=== PATIENT | male | born 1985 | race Two or more races ===

== ENCOUNTER 2025-02-11 11:23 | Emergency (ER) | payer OTHER ==
[~2025-02-11] VITALS: Ht 167.6 cm; Wt 70.0 kg
--- NOTE | 2025-02-11 11:53 | ED.PDOC ---
HPI Comments A 39 YEAR OLD MALE PRESENTS TO THE ED WITH COMPLAINT OF LACERATION. PATIENT REPORTS ON DRILLING AT WORK WHEN THE DRILL CAUGHT ONTO HIS VEST PULLING HIM AROUND, LEAVING HIM WITH ECCHYMOSIS ON THE LEFT INNER BICEPS AND A LACERATION ON THE LEFT FOREARM. PT IS ABLE TO MOVE HIS LEFT UPPER EXTREMITY WITH NORMAL ROM. PATIENT DENIES FEVER, CHILLS, SHORTNESS OF BREATH, CHEST PAIN, ABDOMINAL PAIN, NAUSEA, VOMITING, HEADACHE, OR OTHER COMPLAINTS. NO OTHER SYMPTOMS OR MODIFYING FACTORS AT THIS TIME. PATIENT IS ALERT, ORIENTED X 4, AND HAS STEADY GAIT. Chief Complaint: Laceration Time Seen by MD: 11:30 Primary Care Provider: NONE Reviewed Notes: Nurses Notes, Medications, Allergies Allergies: Coded Allergies: NO KNOWN ALLERGIES (Unverified , 08/10/12) Home Meds Active Scripts Naproxen (Naproxen) 500 Mg Tab, 500 MG PO BID, #30 TAB Prov:JOSE MANUEL MOORE 02/11/25 Cephalexin Monohydrate (Cephalexin) 500 Mg Cap, 1 CAP PO QID, #40 CAP Prov:JOSE MANUEL MOORE 02/11/25 Information Source: Patient Mode of Arrival: Ambulatory Severity: Moderate Severity of Laceration: Controlled Bleeding Complexity: Intermediate Timing: Minutes Prehospital treatment: None Laceration Location: Arm (AND LEFT FOREARM ) Mechanism: Work Related Last Tetanus: Unknown Laceration Length (cm): 8 Skin Type: Jagged Depth of Injury: SQ Tendon Injury: 0% Distal Function Deficits: Motor Capillary Refill: < 3 seconds Tender: Moderate Discharge: Bloody Associated Signs and Symptoms: Bleeding, None Past Medical History PAST MEDICAL HISTORY: Denies Surgical History: Denies all surgeries Family History Family History: Reviewed,noncontributory to illness, Unknown Social History Smoker: Non-Smoker Alcohol: Denies ETOH Use Drugs: Denies Drug Use Lives In: Home Constitutional: 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); denies: chills, diaphoresis, fatigue, fever, malaise, sweats, weakness EENTM: denies: blurred vision, double vision, ear bleeding, ear discharge, ear drainage, ear pain, ear ringing, eye pain, eye redness, hearing loss, mouth pain, mouth swelling, nasal discharge, nose bleeding, nose congestion, nose pain, photophobia, tearing, throat pain, throat swelling, voice changes, others Respiratory: denies: cough, hemoptysis, orthopnea, SOB at rest, shortness of breath, SOB with excertion, stridor, wheezing, others Cardiovascular: denies: chest pain, dizzy spells, diaphoresis, Dyspnea on exertion, edema, irregular heart beat, left arm pain, lightheadedness, palpitations, PND, syncope, others Gastrointestinal: denies: abdomen distended, abdominal pain, blood streaked bowels, constipated, diarrhea, dysphagia, difficulty swallowing, hematemesis, melena, nausea, poor appetite, poor fluid intake, rectal bleeding, rectal pain, vomiting, others Genitourinary: denies: burning, dysuria, flank pain, frequency, hematuria, incontinence, penile discharge, penile sore, pain, testicle pain, testicle swelling, urgency, others Neurological: denies: dizziness, fainting, headache, left sided numbness, left sided weakness, numbness, paresthesia, pre-existing deficit, right sided numbness, right sided weakness, seizure, speech problems, tingling, tremors, weakness, others Musculoskeletal: denies: back pain, gout, joint pain, joint swelling, muscle pain, muscle stiffness, neck pain, others Integumetry: reports: bruises (LEFT INNER ARM ), laceration (LEFT VOLAR FOREARM. ); denies: change in color, change in hair/nails, dryness, lesions, lumps, rash, wounds, others Allergic/Immunocompromised: denies: Difficulty Healing, Frequent Infections, Hives, Itching, others Hematologic/Lymphatic: denies: anemia, blood clots, easy bleeding, easy bruising, swollen glands, others Endocrine: denies: excessive hunger, excessive sweating, excessive thirst, excessive urination, flushing, intolerance to cold, intolerance to heat, unexplained weight gain, unexplained weight loss, others Psychiatric: denies: anxiety, bipolar disorder, depression, hopeless, panic disorder, schizophrenia, sleepless, suicidal, others All Other Systems: Reviewed and Negative Physical Exam General Appearance: No Apparent Distress, Normal HEENT: Normal ENT Inspection, PERRL/EOMI, Pharynx Normal, TMs Normal Neck: Full Range of Motion, Non-Tender, Normal, Normal Inspection Respiratory: Chest Non-Tender, Lungs Clear, No Accessory Muscle Use, No Respiratory Distress, Normal Breath Sounds Cardiovascular: No Edema, No JVD, No Murmur, No Gallop, Normal Peripheral Pulses, Regular Rate/Rhythm Breast Exam: Deferred Gastrointestinal: No Organomegaly, Non Tender, No Pulsatile Mass, Normal Bowel Sounds, Soft Genitalia: Deferred Pelvic: Deferred Rectal: Deferred Extremities: No calf tenderness, Normal capillary refill, Normal range of motion, No pedal edema, Tender (WITH LACERATION ON LEFT VOLAR FOREARM, CONTUSION ON LEFT INNER ARM, NO BONY TENDERNESS, SWELLING AND DEFORMITY. ) Musculoskeletal : Apperance: Normal Neurologic: Alert, hair boiler II-XII nml as Tested, No Motor Deficits, Normal Affect, Normal Mood, No Sensory Deficits Cerebellar Function: Normal Reflexes: Normal Skin: Bruises (LEFT INNER ARM. ), Dry, Lacerations (8CM IRREGULAR LACERATION ON LEFT VOLAR FOREARM, NO BLEEDING AND FB, NORMAL ROM, NEUROVASCULAR INTACT. ), Normal Color, Warm Peripheral Pulses: 2+ carotid (R), 2+ carotid (L), 2+ Radial (R), 2+ Radial (L) Lymphatic: No Adenopathy Was a procedure done? Was a procedure done?: No Laceration Repair : Location LEFT FOREARM Length 8CM Anesthetic: Lidocaine Laceration Repair Prep: Saline, Betadine, by Irrigation Laceration Repair Wound Comple: epidermis/dermis repair Laceration Repair: Number of sutures (14), SQ, Size (4-0), Nylon, Simple, Bacitracin, Gauze Informed consent obtained: No Risks, benefits, and alternati: Yes Images 1 - Differential diagnosis Generic Laceration: Laceration, Other (CONTUSION OF LEFT ARM ) X-Ray, Labs, Meds, VS Vital Signs Date Time Temp Pulse Resp B/P (MAP) Pulse Ox O2 Delivery O2 Flow Rate FiO2 02/11/25 12:31 66 20 98 Room Air 02/11/25 12:31 98.0 66 20 140/98 (112) 98 98.0 02/11/25 11:27 98.0 66 20 140/98 98 98.0 Current Medications Medications (Trade) Dose Ordered Sig/Juan Pablo Route Start Time Stop Time Status Last Admin Diphtheria/ Tetanus/Acell Pertussis (Boostrix T-Dap) 0.5 ml ONCE ONCE IM 02/11/25 11:45 02/11/25 11:46 DC 02/11/25 12:06 X-Ray, Labs, Meds, VS Comment EXTERNAL MEDICAL RECORDS REVIEWED: [NONE] INDEPENDENT HISTORIANS: [NONE] SOCIAL DETERMINANTS OF HEALTH: [NONE] LABS ORDERED: NONE REVIEWED AND INTERPRETED RESULTS: NONE IMAGING ORDERED: LEFT FOREARM AND HUMBER: NO ACUTE FINDING. TREATMENTS ORDERED: TETANUS INJECTION PROCEDURES PERFORMED: LACERATION REPAIR CRITICAL CARE TIME: NONE I HAVE DISCUSSED THE PATIENT WITH THE ATTENDING PHYSICIAN DR. BARNHART AND HE AGREES WITH THE PATIENT'S PLAN OF CARE AND DISPOSITION. BASED ON HISTORY OF PRESENT ILLNESS, AND PHYSICAL EXAM, PATIENT WILL BE DISCHARGED HOME. DISCUSSED PLAN FOR DISCHARGE HOME WITH RX [KEFLEX AND NAPROXEN ]. MEDICATION WARNINGS GIVEN. SHARED DECISION MAKING: DISCUSSED WITH PATIENT THAT THEIR WORKUP WAS NORMAL. PATIENT INSTRUCTED TO FOLLOW UP WITH PRIMARY CARE PROVIDER IN 1-2 DAYS FOR RE- EVALUATION OF SYMPTOMS. PATIENT VERBALIZES UNDERSTANDING TO RETURN TO ED FOR NEW OR WORSENING SYMPTOMS OR IF FOLLOW UP WITH PCP CANNOT BE OBTAINED. PATIENT FEELS COMFORTABLE GOING HOME AT THIS TIME. ALL QUESTIONS ADDRESSED AT TIME OF DISCHARGE. Time of 1ST Reevaluation: 12:45 Reevaluation 1ST: Improved Patient Education/Counseling: Diagnosis, Treatment, Need For Follow Up Family Education/Counseling: Diagnosis, Treatment, Need For Follow Up Medical Screening: No EMC Exist At This Time Departure 1 Departure Time of Disposition: 13:00 Impression: Primary Impression: Laceration of left forearm Qualified Codes: S51.812A - Laceration without foreign body of left forearm, initial encounter Additional Impression: Contusion of left upper arm Qualified Codes: S40.022A - Contusion of left upper arm, initial encounter Disposition: 01 HOME / SELF CARE / HOMELESS Condition: Stable Additional Instructions: FOLLOW-UP WITH [facility] IN 1 TO 2 DAYS. TAKE MEDICATIONS PRESCRIBED. RETURN TO ED FOR ANY NEW OR WORSENING SYMPTOMS. e-Prescriptions Naproxen (Naproxen) 500 Mg Tab 500 MG PO BID, #30 TAB Prov: JOSE MANUEL MOORE 02/11/25 Cephalexin Monohydrate (Cephalexin) 500 Mg Cap 1 CAP PO QID, #40 CAP Prov: JOSE MANUEL MOORE 02/11/25 Discharged With: Self Critical Care Note Critical Care Time?: No Stability Stability form required: No I personally scribed for JOSE MANUEL MOORE ([email or web address]) on 02/11/25 at 11:53. Electronically submitted by Jd Lockhart ([email or web address]). JOSE MANUEL MOORE Feb 11, 2025 11:53
[2025-02-11] MEDS: TETANUS-DIPTH-ACEL PERTUSSIS 0.5ML SYR Tdap IM ONE (12:06)
[2025-02-11 12:31] VITALS: BP 140/98; PULSE 66; RESP 20; TEMP 98; O2SAT 98
[2025-02-11] MEDS ORDERED: CEPH500C PO (12:38)
[2025-02-11] MEDS ORDERED: NAPR-746 PO (12:38)
--- NOTE | 2025-02-11 12:39 | DVH ---
XY L HUMERUS XRAY, INDICATION: INJURY TECHNICAL DATA: Frontal and lateral views were obtained of the left humerus. COMPARISON: XY L FOREARM XRAY on DOS: 02/11/25 FINDINGS: There is no osseous abnormality. Soft tissues are normal. IMPRESSION: No acute fracture or dislocation.
--- NOTE | 2025-02-11 12:48 | DVH ---
Indication: LACERATION Technique: XY L FOREARM XRAYXY Comparison: None FINDINGS/IMPRESSION: No radiographic evidence for acute fracture or dislocation. Soft tissue edema and emphysema along th e dorsal aspect of the left forearm. No radiopaque foreign body seen.
== END 2025-02-11 12:52 | disposition home or self-care (01) ==
LOC: ER 11:23
DX: S51.812A Laceration without foreign body of left forearm, initial encounter (principal); S40.022A Contusion of left upper arm, initial encounter; X58.XXXA Exposure to other specified factors, initial encounter; Y93.89 Activity, other specified; Y92.89 Other specified places as the place of occurrence of the external cause; Y99.0 Civilian activity done for income or pay
CPT/HCPCS: 12044; 73060; 73090; 90471; 90715